=== PATIENT | male | born 1995 | race Caucasian/White ===

== ENCOUNTER 2022-02-18 10:15 | Outpatient (CLI) | payer BC, SELFPAY ==
--- NOTE | ~2022-02-18 | XR_ITS ---
XR sinus min 3V DATE: 02/18/2022 10:37 INDICATION: Congestion, sinusitis TECHNIQUE: 6 views COMPARISON: None FINDINGS: The paranasal sinuses and mastoid air cells are normally developed and aerated. No mucoperi osteal thickening, opacification or fluid level is identified. IMPRESSION: Normal development and aeration of the paranasal sinuses and mastoid air cells Reviewed, dictated and finalized at location B. IMPRESSION: Normal development and aeration of the paranasal sinuses and mastoi d air cells
== END 2022-02-18 10:16 | disposition home or self-care (01) ==
LOC: CHSIMG 10:19
PROVIDERS: PCP Internal Medicine; Visit Provider Internal Medicine
DX: Z00.00 Encounter for general adult medical examination without abnormal findings (principal); M62.89 Other specified disorders of muscle; J32.9 Chronic sinusitis, unspecified
CPT/HCPCS: 70220

== ENCOUNTER 2022-09-23 13:59 | Outpatient (CLI) | payer OTHER, SELFPAY ==
--- NOTE | ~2022-09-23 | XR_ITS ---
Left ankle Technique: AP, oblique, and lateral views were obtained. Clinical History: Pain Findings: Probable small avulsion fracture seen on lateral view from the dorsal aspect of the navicul ar. No other fracture identified. No dislocation. Ankle mortise and other visualized joint spaces are preserved. Soft tissues are otherwise unremarkable. Impression: Small avulsion fracture from the dorsal aspect of the navicular, seen on lateral view. Reviewed, dictated and finalized at location M. Impression: Small avulsion fracture from the dorsal aspect of the navicular, seen on latera l view.
--- NOTE | ~2022-09-23 | XR_ITS ---
EXAMINATION: XR foot LT min 3V DATE: 09/23/2022 14:28 INDICATION: Left foot injury. TECHNIQUE: 4 views of left foot were obtained. COMPARISON: None. FINDINGS: Bone alignment is normal. There are chips of bone dorsal to navicular. Joint spaces are nor mal. IMPRESSION: 1. Chips of bone dorsal to navicular that may be acute avulsion fractures or chronic findings. Reviewed, dictated and finalized at location A. IMPRESSION: 1. Chips of bone dorsal to navicular that may be acute avulsion fractures or ch ronic findings.
== END 2022-09-23 14:00 | disposition home or self-care (01) ==
LOC: CHSIMG 14:04
PROVIDERS: PCP Internal Medicine; Visit Provider Nurse Practitioner Family
DX: S82.892A Other fracture of left lower leg, initial encounter for closed fracture (principal); M25.572 Pain in left ankle and joints of left foot
CPT/HCPCS: 73610; 73630

== ENCOUNTER 2022-10-22 13:47 | Outpatient (CLI) | payer OTHER, SELFPAY ==
--- NOTE | ~2022-10-22 | XR_ITS ---
XR ankle LT min 3V DATE: 10/22/2022 14:09 INDICATION: Avulsion fracture 4 weeks ago TECHNIQUE: 4 views COMPARISON: None FINDINGS: There is an interval change of a very small cortical avulsion fracture at the dorsal aspect of the tarsal navicular bone. No other fracture or dislocation the ankle or disruption of the ankle mortise. IMPRESSION: No significant change since 09/23/2022 Reviewed, dictated and finalized at location A.
== END 2022-10-22 13:48 | disposition home or self-care (01) ==
LOC: CHSIMG 13:51
PROVIDERS: PCP Internal Medicine; Visit Provider Nurse Practitioner Family
DX: S82.892A Other fracture of left lower leg, initial encounter for closed fracture (principal)
CPT/HCPCS: 73610

== ENCOUNTER → 2022-11-10 12:36 | Outpatient (CLI) | payer OTHER, SELFPAY ==
--- NOTE | ~2022-11-10 | MR_ITS ---
EXAMINATION: MR ankle LT wo con DATE: 11/10/2022 13:16 INDICATION: Left ankle pain TECHNIQUE: Magnetic resonance imaging (MRI) of the left ankle was performed without intravenous contr ast. Sequences included sagittal, coronal, and axial proton-density weighted fast spin echo without a nd with fat saturation. COMPARISON: Radiographs dated 10/22/2012 and 09/23/2022 FINDINGS: Medial ankle ligaments: Deep and superficial deltoid ligaments as well as the spring ligament are normal. Lateral ankle ligaments: The anterior and posterior inferior tibiofibular ligaments are normal. There is thickening and increa sed signal of the anterior talofibular ligament without significant surrounding soft tissue edema con sistent with partial tear which could be subacute or chronic. The calcaneofibular and posterior talof ibular ligaments are normal. Tendons: Achilles tendon is normal. The peroneus longus and brevis tendons are normal. The tibialis anterior a nd extensor hallucis longus and extensor digitorum longus tendons are normal. The tibialis posterior, flexor digitorum longus and flexor hallucis longus tendons are normal. Plantar fascia: Plantar aponeurosis is normal. Bones/other: Mild marrow edema along a small nondisplaced fracture involving the dorsal corner of the anterior pro cess of the calcaneus without evident fracture gap or incongruity where it intersects the articular c ortex at the cephalad aspect of the calcaneocuboid articulation. There is additional marrow edema wit hout evident fracture at the posterior medial aspect of the talus, along the inferior margin of the h ead of the talus, the plantar/medial aspect of the navicula and along the plantar/medial margin of th e distal medial cuneiform which given the history of prior trauma most likely represent bone contusio ns. Joint spaces appear relatively preserved. There is mild thickening and increased signal at the do rsal talonavicular ligament likely related to subacute partial tear. This corresponds in location to the avulsion fracture fragment which is not evident on the current MRI which could be due to either i ts small size or interval resorption. The Lisfranc ligament complex remains intact. Fluid: Physiologic amount fluid in the joint spaces. IMPRESSION: 1. Nondisplaced intra-articular fracture of the anterior process of the calcaneus along the dorsal ma rgin of the calcaneocuboid articulation. 2. Additional marrow edema without evident fracture lines likely related to post traumatic bone contu sions at the talus, navicula and medial cuneiform as detailed above. 3. Likely subacute partial tears of the anterior talofibular ligament and the dorsal talonavicular li gament. Reviewed, dictated and finalized at location B. IMPRESSION: 1. Nondisplaced intra-articular fracture of the anterior process of the calcane us along the dorsal margin of the calcaneocuboid articulation. 2. Additional marrow edema without evident fracture lines likely related to pos t traumatic bone contusions at the talus, navicula and medial cuneiform as deta iled above. 3. Likely subacute partial tears of the anterior talofibular ligament and the d orsal talonavicular ligament.
== END ==
PROVIDERS: PCP Internal Medicine; Visit Provider Internal Medicine
DX: S82.892D Other fracture of left lower leg, subsequent encounter for closed fracture with routine healing (principal); X58.XXXD Exposure to other specified factors, subsequent encounter
CPT/HCPCS: 73721